=== PATIENT | female | born 1985 | race Hispanic/Latino ===

== ENCOUNTER 2018-03-16 06:42 | Emergency (ER) | payer SELFPAY ==
[~2018-03-16] VITALS: Ht 157.5 cm; Wt 64.4 kg
[~2018-03-16 06:42] MED LIST: NKM
[2018-03-16] MEDS ORDERED: Norco 5mg/325mg tab PO ONE (07:15)
--- NOTE | 2018-03-16 07:22 | Emergency Room Report ---
History of Present Illness General Chief Complaint: Multiple Trauma/Fall Source: Patient Present Illness HPI The patient presents half an hour after falling down 16 stairs. They're carpeted. She tumbled forward. She hit the right side of her head. She complains about pain in the left side of her head. She also lost consciousness. She remembers falling. She denies any nausea at this time. She also complains about pain in her left big toe. She also has slight amount of tenderness in her left hip. Pain in her face = 8/10, throbbing and aching, radiates slightly to back of head. No neck pain. Her last period was normal. She denies dysuria, chest pain, abdominal pain. Allergies: Coded Allergies: No Known Allergies (Unverified , 03/16/18) Patient History Past Medical History: see triage record Social History Narrative She drove herself here and is with her mother. Last Menstrual Period: march 09 2018 Now: No Reviewed Nursing Documentation: PMH: Agreed; PSxH: Agreed Nursing Documentation-PMH Past Medical History: No Stated History Review of Systems All Other Systems: negative except mentioned in HPI Physical Exam Vital Signs Date Time Temp Pulse Resp B/P (MAP) Pulse Ox O2 Delivery O2 Flow Rate FiO2 03/16/18 06:44 98.2 96 16 125/81 98 98.2 Sp02 EP Interpretation: reviewed, normal General Appearance: well appearing, no apparent distress, GCS 15 Head: normocephalic, other - Left facial pain Eyes: bilateral eye normal inspection, bilateral eye PERRL, bilateral eye EOMI ENT: moist mucus membranes Neck: full range of motion, supple, no bony tend Respiratory: lungs clear, normal breath sounds Cardiovascular #1: regular rate, rhythm Cardiovascular #2: 2+ radial (R) Gastrointestinal: normal inspection, normal bowel sounds, non tender, no mass, non-distended Musculoskeletal: back normal, normal range of motion, pelvis stable, tender - Date toe left side and left hip area. Slight swelling the toe. No deformity. Ambulatory and normal range of motion of the hip. 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 nml as tested, motor strength/tone normal, DTRs symmetric, sensory intact, cerebellar normal, normal gait, speech normal Psychiatric: mood/affect normal Skin: normal inspection, warm/dry Medical Decision Making Diagnostic Impression: Primary Impression: Multiple injuries due to trauma Additional Impressions: Concussion Qualified Codes: S06.0X1A - Concussion with loss of consciousness of 30 minutes or less, initial encounter Fracture of right great toe Qualified Codes: S92.424A - Nondisplaced fracture of distal phalanx of right great toe, initial encounter for closed fracture Facial contusion Qualified Codes: S00.83XA - Contusion of other part of head, initial encounter ER Course Patient presents after falling down 16 stairs and loss of consciousness. Differential includes contusion, concussion, fracture of the toe, bleeds amongst others. The patient will be treated for pain here. Evaluation will be with CT of the head, maxillofacial. The neck does not require imaging. Also an x-ray will be obtained of her left foot. Also urinalysis will be checked. CT head and face without fx, bleed. + STS. Toe with fx. UA clear. Improved with treatment. Ashish tape placed on toe. Position and tension excellent and neurovasc normal checked by me. Patient stable for outpatient observation and treatment. Laboratory Tests Test 03/16/18 06:51 Urine Color Pale yellow Urine Appearance Clear Urine pH 5 (4.5-8.0) Urine Specific [place] 1.020 (1.005-1.035) Urine Protein 2+ (NEGATIVE) H Urine Glucose (UA) Negative (NEGATIVE) Urine Ketones Negative (NEGATIVE) Urine Occult Blood Negative (NEGATIVE) Urine Nitrite Negative (NEGATIVE) Urine Bilirubin Negative (NEGATIVE) Urine Urobilinogen Normal MG/DL (0.0-1.0) Urine Leukocyte Esterase Negative (NEGATIVE) Urine RBC 0-2 /HPF (0 - 2) Urine WBC 0-2 /HPF (0 - 2) Urine Squamous Epithelial Cells Few /LPF (NONE/OCC) Urine Bacteria Few /HPF (NONE) Urine HCG, Qualitative Negative (NEGATIVE) Other X-Ray Diagnostic Results Other X-Ray Diagnostic Results : X-Ray ordered: L foot # of Views/Limited Vs Complete: 3 View Indication: Other Interpretation: no dislocation, no soft tissue swelling, other - fx distal phalynx Impression: Other Electronically Signed by: Woody Brady MD CT/MRI/US Diagnostic Results CT/MRI/US Diagnostic Results #1: Imaging Test Ordered: head Impression no bleed, fx, mass CT/MRI/US Diagnostic Results #2: Imaging Test Ordered: maxilofacial Impression STS no fx Last Vital Signs Date Time Temp Pulse Resp B/P (MAP) Pulse Ox O2 Delivery O2 Flow Rate FiO2 03/16/18 09:58 80 16 119/78 97 Room Air 03/16/18 08:34 98.2 Status: improved Disposition: HOME, SELF-CARE Condition: Improved Scripts Methocarbamol* (ROBAXIN*) 500 Mg Tablet 500 MG PO TID PRN for muscle spasms, #10 TAB 0 Refills Prov: Woody Brady M.D. 03/16/18 Hydrocodone Bit/Acetaminophen 5-325* (NORCO 5-325*) 1 Each Tablet 1 TAB ORAL Q6H PRN for For Pain, #14 TAB 0 Refills Prov: Woody Brady M.D. 03/16/18 Ibuprofen* (MOTRIN*) 600 Mg Tablet 600 MG ORAL Q6H PRN for For Pain, #20 TAB Prov: Woody Brady M.D. 03/16/18 Referrals: NOT CHOSEN CHELSEY/,REFERRING (PCP) Woody Brady M.D. Mar 16, 2018 07:22
[2018-03-16 07:24] LABS: APPEARANCE,URINE CLEAR; BILIRUBIN, URINE NEGATIVE (NEGATIVE); COLOR,URINE PALE YELLOW; GLUCOSE, URINE (UA) NEGATIVE (NEGATIVE); KETONES,URINE NEGATIVE (NEGATIVE); LEUKOCYTE ESTERASE ,URINE NEGATIVE (NEGATIVE); NITRITE,URINE NEGATIVE (NEGATIVE); PH,URINE 5 (4.5-8.0); PROTEIN,URINE 2+ (NEGATIVE); UROBILINOGEN,URINE NORMAL MG/DL (0.0-1.0)
[2018-03-16 09:00] VITALS: BP 119/78
--- NOTE | 2018-03-16 09:01 | Diagnostic Imaging Report ---
Indication: Headache. Head trauma Technique: Contiguous 5 mm thick transaxial imaging of the head obtained in a Siemens Sensation [address] scanner. Soft tissue and bone windows generated. Automatic Exposure Control was utilized. Total Dose length Product (DLP): 1848.[address] Dose Index Volume (CTDIvol): 28.19,70.38 mGy Comparison: none Findings: The size and configuration of the cortical sulci, basal cisterns, and ventricles are within normal limits for age. There is no mass effect, midline shift, or edema identified. There is no evidence of acute hemorrhage or abnormal intra-axial or extra-axial fluid collections. The bones and soft tissues are unremarkable. Impression: No mass effect, edema or acute bleed. The CT scanner at [facility] is accredited by the [employer] and the scans are performed using dose optimization techniques as appropriate to a performed exam including Automatic Exposure control.
--- NOTE | 2018-03-16 09:03 | Diagnostic Imaging Report ---
Indication: Facial trauma and pain Technique: Continuous helical transaxial imaging of the maxillofacial structures obtained without intravenous contrast administration. Coronal 2-D reformats were also obtained. Study obtained in a Siemens sensation [address] Automatic Exposure Control was utilized. Total Dose length Product (DLP): [address] Dose Index Volume (CTDIvol): 0.15, 28.19, 70.38 mGy Comparison: None Findings: There is no evidence of an acute fracture. Paranasal sinuses and mastoids are clear. Soft tissues are unremarkable. Orbits are unremarkable. Mandible appears unremarkable. IMPRESSION: No acute injury The CT scanner at [facility] is accredited by the [employer] and the scans are performed using dose optimization techniques as appropriate to a performed exam including Automatic Exposure control.
[2018-03-16] MEDS ORDERED: IBUPROFEN600 MG ORAL (09:23)
[2018-03-16] MEDS ORDERED: ROBAXIN500 MG PO (09:23)
[2018-03-16] MEDS ORDERED: NORCO 5-325 TA1 EACH ORAL (09:23)
[2018-03-16 09:58] VITALS: BP 119/78
--- NOTE | 2018-03-16 10:55 | Diagnostic Imaging Report ---
Indication: Foot pain Comparison: None Findings: 3 views of the left foot were obtained. No acute fractures, malalignment, erosions or periostitis are identified. Soft tissues are unremarkable. Impression: No acute findings
== END 2018-03-16 10:05 | disposition home or self-care (01) ==
LOC: MERGE 07:03 → EMR 07:03
DX: S06.0X1A Concussion with loss of consciousness of 30 minutes or less, initial encounter (principal); S00.83XA Contusion of other part of head, initial encounter; S92.404A Nondisplaced unspecified fracture of right great toe, initial encounter for closed fracture; W10.9XXA Fall (on) (from) unspecified stairs and steps, initial encounter; Y92.009 Unspecified place in unspecified non-institutional (private) residence as the place of occurrence of the external cause
CPT/HCPCS: 70450; 70486; 81003; 81025; 99284